=== PATIENT | female | born 1955 | race Caucasian/White ===

== ENCOUNTER 2019-03-07 09:14 | Emergency (ER) | payer MEDICARE, OTHER ==
[~2019-03-07] VITALS: Ht 162.6 cm; Wt 113.4 kg
[2019-03-07] MEDS ORDERED: ALBU90OI INH (10:31)
[2019-03-07] MEDS ORDERED: THERA-D2000 UNIT PO (10:31)
[2019-03-07] MEDS ORDERED: ETOD400 PO (10:31)
[2019-03-07] MEDS ORDERED: Voltaren100 GM TOP (10:32)
[2019-03-07] MEDS ORDERED: Ultram50 MG PO (13:17)
== END 2019-03-07 13:18 | disposition home or self-care (01) ==
LOC: ER 09:14
DX: M25.511 Pain in right shoulder (principal); M25.521 Pain in right elbow; Z88.0 Allergy status to penicillin; Z88.5 Allergy status to narcotic agent; W19.XXXA Unspecified fall, initial encounter
CPT/HCPCS: 73030; 73080; 73552; 99283-25; A9270-GY

== ENCOUNTER 2019-04-18 16:44 | Emergency (ER) | payer MEDICARE, OTHER ==
[~2019-04-18] VITALS: Ht 162.6 cm; Wt 120.2 kg
[~2019-04-18 16:44] MED LIST: ALBU90OI INH; ETOD400 PO; THERA-D2000 UNIT PO; Ultram50 MG PO; Voltaren100 GM TOP
[2019-04-18] MEDS ORDERED: Prednisone50 MG PO (18:43)
== END 2019-04-18 19:20 | disposition home or self-care (01) ==
LOC: ER 16:44
DX: J45.901 Unspecified asthma with (acute) exacerbation (principal); J06.9 Acute upper respiratory infection, unspecified; Z88.0 Allergy status to penicillin; Z88.5 Allergy status to narcotic agent; Z79.899 Other long term (current) drug therapy
CPT/HCPCS: 71046; 93005; 93010; 94640; 96374; 99284-25; J1100

== ENCOUNTER 2019-12-15 12:39 | Emergency (ER) | payer MEDICARE, OTHER ==
[~2019-12-15] VITALS: Ht 162.6 cm; Wt 108.9 kg
[~2019-12-15 12:39] MED LIST changes: +Prednisone50 MG PO
== END 2019-12-15 13:44 | disposition home or self-care (01) ==
LOC: ER 12:39
DX: S60.212A Contusion of left wrist, initial encounter (principal); J45.909 Unspecified asthma, uncomplicated; Z88.0 Allergy status to penicillin; Z88.5 Allergy status to narcotic agent; Z79.899 Other long term (current) drug therapy; X50.1XXA Overexertion from prolonged static or awkward postures, initial encounter; W19.XXXA Unspecified fall, initial encounter
CPT/HCPCS: 73110; 99283-25

== ENCOUNTER 2020-03-04 15:50 | Emergency (ER) | payer MEDICARE, OTHER ==
[~2020-03-04] VITALS: Ht 162.6 cm; Wt 106.6 kg
[2020-03-04] MEDS ORDERED: Tessalon Perle100 MG PO (18:04)
== END 2020-03-04 18:22 | disposition home or self-care (01) ==
LOC: ER 15:50
DX: J06.9 Acute upper respiratory infection, unspecified (principal); J45.909 Unspecified asthma, uncomplicated; Z20.822 Contact with and (suspected) exposure to COVID-19; Z79.899 Other long term (current) drug therapy; Z88.0 Allergy status to penicillin; Z88.5 Allergy status to narcotic agent
CPT/HCPCS: 71046; 87081; 87430; 99283-25; A9270; J1100; U0003

== ENCOUNTER 2021-07-18 19:52 | Emergency (ER) | payer MEDICARE, OTHER ==
[~2021-07-18] VITALS: Ht 160 cm; Wt 97.5 kg
[~2021-07-18 19:52] MED LIST changes: +Tessalon Perle100 MG PO
[2021-07-18 20:28] LABS: BASOPHILS ABSOLUTE AUTO 0.05 K/mm3 (0.00-0.23); BASOPHILS PERCENT AUTO 1 % (0-2); EOSINOPHILS ABSOLUTE AUTO 0.18 K/mm3 (0.00-0.68); EOSINOPHILS PERCENT AUTO 2 % (0-6); Hematocrit 36.3 % (33.0-51.0); Hemoglobin 12.1 g/dL (11.5-16.0); IMMATURE GRAN ABSOLUTE AUTO 0.02 K/mm3 (0.00-0.10); IMMATURE GRAN PERCENT AUTO 0 % (0-1); LYMPHOCYTES ABSOLUTE AUTO 1.79 K/mm3 (0.84-5.20); LYMPHOCYTES PERCENT AUTO 24 % (21-46); MONOCYTES ABSOLUTE AUTO 0.41 K/mm3 (0.16-1.47); MONOCYTES PERCENT AUTO 5 % (4-13); Mean Corpuscular HGB 27.4 pg (26.0-34.0); Mean Corpuscular HGB Conc 33.3 g/dL (31.5-36.5); Mean Corpuscular Volume 82 fL (80-100); Mean Platelet Volume 9.6 fL (9.1-12.4); NEUTROPHILS PERCENT AUTO 68 % (41-73); Platelet Count 252 K/mm3 (150-400); RDW Coefficient Variation 14.3 % (11.7-14.2); RDW Standard Deviation 43.2 fL (35.1-46.3); Red Blood Cell Count 4.41 M/mm3 (3.80-5.20); White Blood Cell Count 7.55 K/mm3 (4.00-11.30)
[2021-07-18 20:48] LABS: Albumin, Blood 3.3 g/dL (3.4-5.0); Bilirubin, Total 0.4 mg/dL (0.1-1.0); Bun/Creatinine Ratio 35.5 (12.0-20.0); Creatinine, Blood 0.68 mg/dL (0.40-1.00); Globulin, Blood 3.3 g/dL (2.2-4.0); Potassium, Blood 3.5 mmol/L (3.5-5.5); Total Protein, Blood 6.6 g/dL (6.4-8.2)
[2021-07-18] MEDS ORDERED: POTCHL20ER PO (22:20)
[2021-07-18] MEDS ORDERED: LASIX20 M2 PO (22:20)
== END 2021-07-18 22:31 | disposition home or self-care (01) ==
LOC: ER 19:52
PROVIDERS: Physician Assistant
DX: R60.0 Localized edema (principal); M79.662 Pain in left lower leg; M79.661 Pain in right lower leg; J45.909 Unspecified asthma, uncomplicated; Z79.899 Other long term (current) drug therapy
CPT/HCPCS: 36415; 71046; 80053; 83690; 83880; 84484; 85025; 93005; 93010; J1940

== ENCOUNTER 2021-07-25 18:52 | Inpatient (IN) | payer MEDICARE, OTHER ==
[~2021-07-25] VITALS: Ht 162.6 cm; Wt 98.0 kg
[~2021-07-25 18:52] MED LIST changes: +LASIX20 M2 PO; +POTCHL20ER PO
[2021-07-25 20:20] LABS: BASOPHILS ABSOLUTE AUTO 0.04 K/mm3 (0.00-0.23); BASOPHILS PERCENT AUTO 0 % (0-2); EOSINOPHILS ABSOLUTE AUTO 0.15 K/mm3 (0.00-0.68); EOSINOPHILS PERCENT AUTO 2 % (0-6); Hematocrit 42.5 % (33.0-51.0); Hemoglobin 13.7 g/dL (11.5-16.0); IMMATURE GRAN ABSOLUTE AUTO 0.03 K/mm3 (0.00-0.10); IMMATURE GRAN PERCENT AUTO 0 % (0-1); LYMPHOCYTES ABSOLUTE AUTO 0.96 K/mm3 (0.84-5.20); LYMPHOCYTES PERCENT AUTO 10 % (21-46); MONOCYTES ABSOLUTE AUTO 0.53 K/mm3 (0.16-1.47); MONOCYTES PERCENT AUTO 5 % (4-13); Mean Corpuscular HGB 27.1 pg (26.0-34.0); Mean Corpuscular HGB Conc 32.2 g/dL (31.5-36.5); Mean Corpuscular Volume 84 fL (80-100); Mean Platelet Volume 10.4 fL (9.1-12.4); NEUTROPHILS ABSOLUTE AUTO 8.26 K/mm3 (1.96-9.15); NEUTROPHILS PERCENT AUTO 83 % (41-73); Platelet Count 242 K/mm3 (150-400); RDW Standard Deviation 43.2 fL (35.1-46.3); Red Blood Cell Count 5.05 M/mm3 (3.80-5.20); White Blood Cell Count 9.97 K/mm3 (4.00-11.30)
[2021-07-25 20:40] LABS: Albumin, Blood 3.3 g/dL (3.4-5.0); Albumin/Globulin Ratio 0.9 (0.8-1.8); Bilirubin, Total 0.4 mg/dL (0.1-1.0); Bun/Creatinine Ratio 47.6 (12.0-20.0); Creatinine, Blood 0.44 mg/dL (0.40-1.00); Globulin, Blood 3.8 g/dL (2.2-4.0); Potassium, Blood 4.2 mmol/L (3.5-5.5); Total Protein, Blood 7.1 g/dL (6.4-8.2)
--- NOTE | 2021-07-26 01:23 | NUR ---
PT ARRIVED TO ROOM 361 FROM ED VIA GURNEY, AFTER ADMIT FINISHED PT TELLS RN THAT HER CHRONIC COUGH STARTED WITH A SORE THROAT LAST WEEK. PT IS SWABBED FOR COVID AND PLACED IN ISOLATION PRECAUTIONS PER PROTOCOL.
[2021-07-26 02:33] LABS: SARS-Cov-2 (COVID-19) PCR, MMC NEGATIVE (NEGATIVE)
[2021-07-26 05:00] LABS: BASOPHILS ABSOLUTE AUTO 0.05 K/mm3 (0.00-0.23); BASOPHILS PERCENT AUTO 1 % (0-2); EOSINOPHILS ABSOLUTE AUTO 0.15 K/mm3 (0.00-0.68); EOSINOPHILS PERCENT AUTO 1 % (0-6); Hematocrit 39.1 % (33.0-51.0); Hemoglobin 12.2 g/dL (11.5-16.0); IMMATURE GRAN ABSOLUTE AUTO 0.03 K/mm3 (0.00-0.10); IMMATURE GRAN PERCENT AUTO 0 % (0-1); LYMPHOCYTES ABSOLUTE AUTO 1.61 K/mm3 (0.84-5.20); LYMPHOCYTES PERCENT AUTO 15 % (21-46); MONOCYTES ABSOLUTE AUTO 0.95 K/mm3 (0.16-1.47); MONOCYTES PERCENT AUTO 9 % (4-13); Mean Corpuscular HGB 27.2 pg (26.0-34.0); Mean Corpuscular HGB Conc 31.2 g/dL (31.5-36.5); Mean Corpuscular Volume 87 fL (80-100); Mean Platelet Volume 11.6 fL (9.1-12.4); NEUTROPHILS ABSOLUTE AUTO 8.29 K/mm3 (1.96-9.15); NEUTROPHILS PERCENT AUTO 75 % (41-73); Platelet Count 169 K/mm3 (150-400); RDW Coefficient Variation 14.2 % (11.7-14.2); RDW Standard Deviation 46.1 fL (35.1-46.3); Red Blood Cell Count 4.49 M/mm3 (3.80-5.20); White Blood Cell Count 11.08 K/mm3 (4.00-11.30)
[2021-07-26 05:24] LABS: Bun/Creatinine Ratio 36.5 (12.0-20.0); Calcium, Blood 8.8 mg/dL (8.5-10.1); Creatinine, Blood 0.52 mg/dL (0.40-1.00); Potassium, Blood 4.6 mmol/L (3.5-5.5)
--- NOTE | 2021-07-26 06:23 | NUR ---
PT ADMIT THIS SHIFT FROM ER, A/O BLE EDEMA WITH BLISTERS, WEEPIMG AND SORES. PICS IN HARD CHART. IND TO [facility]. PT IS HOMELESS AND LIVES IN HER TRUCK. COVID NEGATIVE THIS SHIFT.
--- NOTE | 2021-07-26 17:45 | NUR ---
SHIFT SUMMARY PT INDEPENDENT UP TO BEDSIDE COMMODE. BLE WITH OPEN WEEPING AREAS TO FRONT AND BACK OF LOWER LEGS. DIFFERENT IDEAS AND OPTIONS DISCUSSED WITH PT ABOUT HOW TO KEEPT HER LEGS ELEVATED WHILE LIVING IN HER TRUCK BUT COMMENTS THAT IT WON'T WORK IN HER SITUATION. TOOK A SHOWER TODAY. WOUND CLINIC IN THIS EVENING TO ASSESS AND DRESS LE'S. REPORTS SHE HAS ONLY URINATED 3 TIMES WITH IV LASIX GIVEN THIS MORNING. FRIEND IN TO VISIT THIS AFTERNOON.
--- NOTE | 2021-07-27 04:25 | NUR ---
SHIFT SUMMARY 66 YR F ADMITTED ON 07/25/21 FOR CELLULITIS OF BLE. FULL CODE. NO ACUTE CHANGES THIS SHIFT. PT SLEPT FOR MOST OF THE SHIFT AND HAD NO C/O PAIN. SHE USES THE BEDSIDE COMMODE INDEPENDANTLY. DRESSING ON BLE IS CLEAN, DRY, AND INTACT.
[2021-07-27 05:44] LABS: Bun/Creatinine Ratio 33.6 (12.0-20.0); Calcium, Blood 8.6 mg/dL (8.5-10.1); Creatinine, Blood 0.66 mg/dL (0.40-1.00); Potassium, Blood 3.4 mmol/L (3.5-5.5)
[2021-07-27] MEDS ORDERED: ACET325 PO (11:01)
[2021-07-27] MEDS ORDERED: HYDCHL25 PO (11:03)
[2021-07-27] MEDS ORDERED: VISBIOME 112.51 EACH PO (11:03)
[2021-07-27] MEDS ORDERED: GABA300 PO (11:03)
[2021-07-27] MEDS ORDERED: BACTRIM 400-801 EACH PO (11:05)
--- NOTE | 2021-07-27 13:45 | NUR ---
DISCHARGE INSTRUCTIONS COMPLETED AND DISCUSSED WITH PT EXPRESSING UNDERSTANDING. ENCOURAGED PT TO CALL WOUND CLINIC IN AM FIRST THING. DRESSINGS TO LEGS CHANGED PRIOR TO DISCHARGE. TO [facility] VIA W/C.
== END 2021-07-27 13:33 | disposition home or self-care (01) | DRG 603 ==
LOC: ER 18:52 → MEDS 23:26
PROVIDERS: Internal Medicine; Physician Assistant; ADMIT Family Medicine
DX: L03.115 Cellulitis of right lower limb (principal); R65.10 Systemic inflammatory response syndrome (SIRS) of non-infectious origin without acute organ dysfunction; L03.116 Cellulitis of left lower limb; J45.909 Unspecified asthma, uncomplicated; I87.2 Venous insufficiency (chronic) (peripheral); E66.9 Obesity, unspecified; Z68.36 Body mass index [BMI] 36.0-36.9, adult; Z88.0 Allergy status to penicillin; Z88.5 Allergy status to narcotic agent; Z59.00 Homelessness unspecified
CPT/HCPCS: 36415; 80048; 80053; 83605; 85025; 96365; 99285; A9270; J0690; J1650; J1885; J1940; U0004

== ENCOUNTER 2021-07-31 00:29 | Day surgery (SDC) | payer MEDICARE, OTHER ==
[~2021-07-31 00:29] MED LIST changes: +ACET325 PO; +BACTRIM 400-801 EACH PO; +GABA300 PO; +HYDCHL25 PO; +VISBIOME 112.51 EACH PO
== END 2021-07-31 23:38 | disposition home or self-care (01) ==
LOC: WOUND 00:29
DX: I87.2 Venous insufficiency (chronic) (peripheral) (principal); L97.822 Non-pressure chronic ulcer of other part of left lower leg with fat layer exposed; L97.812 Non-pressure chronic ulcer of other part of right lower leg with fat layer exposed; J45.909 Unspecified asthma, uncomplicated; I10 Essential (primary) hypertension; Z59.02 Unsheltered homelessness; Z88.0 Allergy status to penicillin; Z88.5 Allergy status to narcotic agent
CPT/HCPCS: A9270; G0463

== ENCOUNTER 2021-08-07 08:00 | Day surgery (SDC) | payer MEDICARE, OTHER | END 2021-08-07 23:59 | disposition home or self-care (01) | LOC: WOUND 08:00 | DX: L97.222 Non-pressure chronic ulcer of left calf with fat layer exposed (principal); L97.812 Non-pressure chronic ulcer of other part of right lower leg with fat layer exposed; L97.822 Non-pressure chronic ulcer of other part of left lower leg with fat layer exposed; I87.2 Venous insufficiency (chronic) (peripheral); I70.203 Unspecified atherosclerosis of native arteries of extremities, bilateral legs; Z59.02 Unsheltered homelessness | CPT/HCPCS: G0463 ==

== ENCOUNTER 2021-08-14 02:33 | Day surgery (SDC) | payer MEDICARE, OTHER | END 2021-08-14 23:21 | disposition home or self-care (01) | LOC: WOUND 02:33 | DX: L97.222 Non-pressure chronic ulcer of left calf with fat layer exposed (principal); L97.812 Non-pressure chronic ulcer of other part of right lower leg with fat layer exposed; I70.203 Unspecified atherosclerosis of native arteries of extremities, bilateral legs; Z59.02 Unsheltered homelessness | CPT/HCPCS: A9270; G0463 ==

== ENCOUNTER 2022-07-04 18:18 | Emergency (ER) | payer MEDICARE, OTHER ==
[~2022-07-04] VITALS: Ht 162.6 cm; Wt 87.0 kg
[~2022-07-04 18:18] MED LIST changes: +SULTRIDS PO
[2022-07-04] MEDS ORDERED: Prednisone20 MG PO (20:48)
[2022-07-04] MEDS ORDERED: BENZ100A PO (20:48)
[2022-07-04] MEDS ORDERED: ALBU90OI INH (20:48)
[2022-07-04] MEDS ORDERED: DOXY100 PO (20:48)
[2022-07-04 21:15] VITALS: BP 145/86
== END 2022-07-04 21:20 | disposition home or self-care (01) ==
LOC: ER 18:18
DX: J18.9 Pneumonia, unspecified organism (principal); J44.9 Chronic obstructive pulmonary disease, unspecified; Z88.0 Allergy status to penicillin; Z88.5 Allergy status to narcotic agent; Z79.52 Long term (current) use of systemic steroids; Z79.899 Other long term (current) drug therapy
CPT/HCPCS: 99283